=== PATIENT | male | born 1970 | race African-American/Black ===

== ENCOUNTER → 2019-09-01 | Day surgery (SDC) | payer OTHER ==
[~2019-09-01] VITALS: Ht 167.6 cm; Wt 70.5 kg
[~2019-09-01] MED LIST: ACETAMINOPHEN 325 MG TABLET PO PRN; FentaNYL CITRATE-PF 100 MCG/2 ML VIAL IVP ONE; MIDAZOLAM HCL 2 MG/2 ML VIAL IVP ONE; MitoMYcin 0.2 MG/VIAL KIT FOR OPHTHALMIC USE OD ONE; NEOMYCIN/POLYMYXIN B/DEXAMETH 3.5 GM OPHTHALMIC OINTMENT ONE; OFLOXACIN 0.3% 5 ML OPHTHALMIC SOLUTION OD ONE; OFLOXACIN 0.3% 5 ML OPHTHALMIC SOLUTION ONE; PHENYLEPHRINE HCL 2.5% 2 ML OPHTHALMIC SOLUTION OD ONE; PHENYLEPHRINE HCL 2.5% 2 ML OPHTHALMIC SOLUTION ONE; PrednisoLONE ACETATE 1% 5 ML OPHTHALMIC SUSPENSION ONE; RINGERS SOLUTION,LACTATED 500 ML IV ONE; TETRACAINE HCL VISCOUS 0.5% 5 ML OPHTHALMIC SOLUTION OD ONE; TETRACAINE HCL/PF 0.5% 4 ML OPHTHALMIC SOLUTION OD ONE; TETRACAINE HCL/PF 0.5% 4 ML OPHTHALMIC SOLUTION ONE
== END | disposition home or self-care (01) ==
LOC: SURGERY 05:28
PROVIDERS: ATTEND Ophthalmology
DX: H11.001 Unspecified pterygium of right eye (principal); I10 Essential (primary) hypertension; Z79.899 Other long term (current) drug therapy
CPT/HCPCS: 65426; 88304; J2250; J3010; J7120